=== PATIENT | male | born 1995 | race African-American/Black ===

== ENCOUNTER 2022-03-19 17:00 | Emergency (ER) | payer MEDICARE, MEDICAID, SELFPAY ==
--- NOTE | ~2022-03-19 | XR_ITS ---
EXAMINATION: XR SHOULDER, LEFT CLINICAL INFORMATION: Pain COMPARISON: None TECHNIQUE: AP external rotation, Grashey, scapular Y, and axillary views of the left shoulder. FINDINGS: Humeral head is well-seated in the glenoid fossa. There is abnormal widening of the acromioclavicular space suggesting acromioclavicular dissociation. Visualized left ribs unremarkable. XR/XR shoulder LT min 2V IMPRESSION: Abnormal widening of the acromioclavicular space consistent with an acromioclavicular dissociation.
[2022-03-19 17:57] VITALS: BP 138/59; PULSE 64; RESP 20; TEMP 36.3; O2SAT 97; BMI 31.4
[2022-03-19] MEDS: Acetaminophen 325 MG TABLET 650 MG PO (18:01)
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
== END 2022-03-19 21:09 | disposition home or self-care (01) ==
PROVIDERS: Emergency Provider Emergency Medicine Emergency Medical Services; PCP Internal Medicine
DX: S43.102A Unspecified dislocation of left acromioclavicular joint, initial encounter (principal); S20.112A Abrasion of breast, left breast, initial encounter; X50.0XXA Overexertion from strenuous movement or load, initial encounter; Y93.9 Activity, unspecified; Y92.9 Unspecified place or not applicable; Y99.9 Unspecified external cause status; Z79.899 Other long term (current) drug therapy
CPT/HCPCS: 73030; 99283; 99284